=== PATIENT | male | born 1985 | race Caucasian/White ===

== ENCOUNTER 2020-04-30 21:42 | Emergency (ER) | payer OTHER ==
[~2020-04-30] VITALS: Ht 180.3 cm; Wt 104.3 kg
[2020-04-30] MEDS ORDERED: NEURONTIN 300M300 M2 PO (21:51)
[2020-04-30] MEDS ORDERED: LEVO-T100 MCG PO (21:52)
[2020-04-30] MEDS ORDERED: DEPAKOTE ER500 M1 PO (21:52)
[2020-04-30] MEDS ORDERED: TRAZODONE HCL50 MG PO (21:53)
[2020-04-30] MEDS ORDERED: HYDROXYZINE PAM25 M1 PO (21:53)
[2020-04-30 22:54] VITALS: BP 135/74
== END 2020-04-30 22:54 | disposition home or self-care (01) ==
LOC: ER 21:42
DX: F15.10 Other stimulant abuse, uncomplicated (principal)